=== PATIENT | male | born 1980 | race Caucasian/White ===

== ENCOUNTER 2022-09-09 19:28 | Emergency (ER) | payer OTHER, SELFPAY ==
[2022-09-09 19:42] VITALS: BP 145/85; PULSE 88; RESP 14; TEMP 37; O2SAT 97
--- NOTE | 2022-09-09 19:59 | ED.EYEPROB ---
HPI - Eye Problem General Chief complaint: Eye Problems Stated complaint: right eye pain Time Seen by Provider: 09/09/22 19:51 Source: patient and RN notes reviewed Mode of arrival: ambulatory Limitations: no limitations History of Present Illness HPI Narrative: Patient presents today complaining of right eye pain. States he got some sawdust in his eye yesterday and is having residual foreign body sensation to the eye. Denies vision changes. Patient wears glasses but does not currently have him on. States he did flush his eye copiously at home but without relief of symptoms. Related Data Home Medications Medication Instructions Recorded Confirmed sertraline 100 mg tablet 100 mg PO DAILY 09/09/22 09/09/22 Allergies Allergy/AdvReac Type Severity Reaction Status Date / Time amoxicillin Allergy Mild Rash Verified 09/09/22 19:47 Review of Systems Review of Systems: CONSTITUTIONAL: Denies body aches, fever, chills, or sweats. EYES: Denies visual changes, redness, or discharge.+ right side foreign body sensation ENT: Denies rhinorrhea, congestion, sore throat, or otalgia. CARDIOVASCULAR: Denies chest pain, palpitations, or edema. RESPIRATORY: Denies cough or dyspnea. GASTROINTESTINAL: Denies abdominal pain, nausea, vomiting, or diarrhea. GENITOURINARY: Denies dysuria or hematuria. SKIN: Denies rash, itching, or wounds. MUSCULOSKELETAL: Denies back pain, joint pain, or myalgia. NEUROLOGIC: Denies headache, numbness, tingling, or weakness. PSYCH: Denies depression or anxiety. PMFSH Comments At time of signature, I have reviewed and agree with nursing past medical, surgical, social and family history unless otherwise noted. Please see nursing chart for further information. There is no relevant family history pertinent to the presenting complaint Exam Narrative: GENERAL: Well-appearing, well-nourished, and in no acute distress. HEAD: Normocephalic, atraumatic. EYES: EOMI. PERRL. Right eye mildly injected conjunctiva. See procedure note. Left eye normal. ENT: Mucous membranes pink and moist. NECK: Normal AROM. CHEST: No respiratory distress. EXTREMITIES: Normal range of motion. No edema. SKIN: Warm, dry, no rash. Capillary refill normal. Normal skin turgor. NEURO: No focal deficits. Alert and oriented x3. Gait steady. PSYCH: Normal affect. No signs of depression or anxiety. Course Course Level of Care: Express Care Visit Vital Signs Vital signs: Vital Signs Temperature 98.6 F 09/09/22 19:42 Pulse Rate 88 09/09/22 19:42 Respiratory Rate 14 09/09/22 19:42 Blood Pressure 145/85 H 09/09/22 19:42 Pulse Oximetry 97 09/09/22 19:42 Oxygen Delivery Room Air 09/09/22 19:42 Temperature 98.6 F 09/09/22 19:42 Pulse Rate 88 09/09/22 19:42 Respiratory Rate 14 09/09/22 19:42 Blood Pressure 145/85 H 09/09/22 19:42 Pulse Oximetry 97 09/09/22 19:42 Oxygen Delivery Room Air 09/09/22 19:42 Reviewed. Pt has been instructed to follow up with his PCP regarding his elevated blood pressure today. Procedures Other Procedure Procedure 1: Other Procedure: Right eye was anesthetized with 1 drop of tetracaine and anesthesia was achieved. The eye was flushed with eye wash. Lid was inverted and examined. Moistened Qtip was used to sweep underneath the upper eyelid with no foreign bodies resulting. Cornea was dyed with fluorescein and 1 abrasions was noted at the 10 o'clock position of the iris. Pt tolerated procedure well. MDM - Eye Problem MDM Narrative Medical decision making narrative: Exam consistent with corneal abrasion. Will start patient on ciprofloxacin eyedrops. Anticipatory guidance given. Differential Diagnosis Differential diagnosis: Likely corneal abrasion, conjunctivitis and corneal ulcer Critical Care Time Critical Care Time Critical Care Time: No Discharge Plan Discharge Clinical Impression: Corneal abrasion, right Qualifiers: E
== END 2022-09-09 20:07 | disposition home or self-care (01) ==
PROVIDERS: Emergency Provider Nurse Practitioner
DX: S05.01XA Injury of conjunctiva and corneal abrasion without foreign body, right eye, initial encounter (principal); X58.XXXA Exposure to other specified factors, initial encounter; F41.9 Anxiety disorder, unspecified; F32.A Depression, unspecified
CPT/HCPCS: 99213; A9270; G0463